=== PATIENT | female | born 1975 | race Caucasian/White ===

== ENCOUNTER 2023-04-26 17:25 | Emergency (ER) | payer BC, SELFPAY ==
[2023-04-26 17:31] VITALS: BP 124/77; PULSE 100; RESP 16; TEMP 36.9; O2SAT 99; BMI 31.8
--- NOTE | 2023-04-26 17:56 | ED.GENADULT ---
HPI - General Adult General Time Seen by Provider: 17:56 Date Seen: 04/26/23 Chief complaint: Extremity Pain/Injury, Upper Stated complaint: right arm pain Time Seen by Provider: 04/26/23 17:53 Source: patient and RN notes reviewed Mode of arrival: ambulatory Limitations: no limitations History of Present Illness HPI narrative: This 48-year-old female is coming in with multitude of symptoms. She did have an episode of substernal chest pressure/pain with shoveling about 5-6 hours ago. The symptoms lasted for about 10-15 minutes. She was shoveling, does have underlying asthma but does not feel it was asthma. Pain is not present now. She does not have a history of cardiac disease. She has no prior diagnosis of heart issues, there is possibly family history of heart disease, certainly family history of diabetes. Patient herself is a smoker but does not have any diabetes, not aware of any prior diagnoses of hypertension or hyperlipidemia for herself. She also has been plagued with a pain in her posterior right axillary chest wall area. She states it is bothering her all the time, wakes her up. She also has had some pain in her arm, has pain when attempting to use her inhaler. She was using Aspercreme initially but states she noted a rash. She denies any numbness or tingling in her right arm, no active neck pain, no trauma. She does have a history of eczema. Related Data Home Medications Medication Instructions Recorded Confirmed albuterol sulfate 90 mcg/actuation 1 - 2 puff inhalation Q4H PRN 04/26/23 04/26/23 aerosol inhaler (Ventolin HFA) wheezing budesonide-formoterol HFA 80 2 inh inhalation DAILY 04/26/23 04/26/23 mcg-4.5 mcg/actuation aerosol inhaler (Breyna) citalopram 40 mg tablet 40 mg PO DAILY 04/26/23 04/26/23 clobetasol 0.05 % topical ointment topical BID 04/26/23 fluticasone propionate 50 spray intranasal 04/26/23 mcg/actuation nasal spray,suspension ipratropium 0.5 mg-albuterol 3 mg 3 ml inhalation Q6H PRN wheezing 04/26/23 04/26/23 (2.5 mg base)/3 mL nebulization soln Allergies Allergy/AdvReac Type Severity Reaction Status Date / Time Sulfa (Sulfonamide Allergy Mild hives Verified 04/26/23 17:36 Antibiotics) Review of Systems Status of ROS: Reports: 6 or more systems reviewed and unremarkable except as noted in History and below PFSH [facility] Social History Smoking Status: Current every day smoker How often do you have a drink containing alcohol: monthly or less AUDIT-C Alcohol total score: 1 Non-prescribed substance use: denies use Exam Const: Vital Signs, click to edit/add: Vital Signs - 24 hr 04/26/23 17:31 Temperature 98.4 F Pulse Rate [Right Pulse Oximeter] 100 Respiratory Rate 16 Blood Pressure [Ri ght Upper Arm] 124/77 Pulse Oximetry 99 Oxygen Delivery Me thod Room Air This 48-year-old female is alert, interactive, no apparent distress. She is very pleasant, speech is normal. Sclera clear, pupils equal round reactive, conjugate gaze. Symmetrical facial function. No midline tenderness of her neck, no facet compression symptoms on range of motion of her neck. No cervical adenopathy, no thyromegaly masses or nodules. Lungs are clear, good air entry, no wheezing or crackles. In a dermatomal pattern, she has erythematous scarring on her right thoracic back that leads up just to the crease of the axilla posteriorly. There are no visible vesicles, she states that this has been there for about a month, she thought she was just having and eczematous rash. This looks like it is healed shingles rash and have explained that to her. There is no axillary mass. In this dermatome, she states the skin feels funny when I touch it. She has full range of motion of her shoulder and elbow, she has pain when I palpate over the lateral epicondyle of the elbow, has increased pain when there is resisted wrist extension translating back to the elbow. There is full range of motion about her right wrist, she has normal flexion extension of the fingers in normal car ferry master strength in her right hand. Neurovascular is intact in this extremity. Documenting provider has reviewed patient's vital signs: yes Course Course ED Course: This patient does seem to be suffering from lateral epicondylitis which I did review with her. I do think she also probably had shingles about a month ago and is suffering from post herpetic neuralgia. We discussed that there is no benefit to antiviral treatment at this point. We will review possible pain management strategies such as gabapentin amitriptyline later. We do need to evaluate her episode of chest symptoms, given that this happened almost 6 hours ago, do feel that we can do a solitary troponin. Will look at basic labs, have her have an EKG. She is currently asymptomatic as far as chest symptoms at this time. Reevaluation(s) Time of Reevaluation #1: 20:03 Reevaluation #1: Reviewed with patient that the labs, chest x-ray, EKG are showing no acute pathology. We reviewed that she does need to follow-up for the episode of chest pain with her primary provider and have a stress test ordered. If further symptoms, do recommend emergent re-evaluation. Also reviewed the tennis elbow/lateral epicondylitis, we do not have the splints here. She can pick this up outpatient or get it from her primary care provider. Did discuss post herpetic neuralgia, will initiate gabapentin 100 mg p.o. nightly, can be titrated up through her primary care provider. Vital Signs Vital signs: Initial Vital Signs Temperature 98.4 F 04/26/23 17:31 Temperature Source Temporal Artery Scan 04/26/23 17:31 Pulse Rate 100 04/26/23 17:31 Respiratory Rate 16 04/26/23 17:31 Blood Pressure 124/77 04/26/23 17:31 Blood Pressure Mean 92 04/26/23 17:31 Blood Pressure Position Sitting 04/26/23 17:31 Pulse Oximetry 99 04/26/23 17:31 Oxygen Delivery Method Room Air 04/26/23 17:31 Vital Signs Temperature 98.4 F 04/26/23 17:31 Pulse Rate 100 04/26/23 17:31 Respiratory Rate 16 04/26/23 17:31 Blood Pressure 124/77 04/26/23 17:31 Pulse Oximetry 99 04/26/23 17:31 Oxygen Delivery Method Room Air 04/26/23 17:31 Temperature 98.4 F 04/26/23 17:31 Pulse Rate 100 04/26/23 17:31 Respiratory Rate 16 04/26/23 17:31 Blood Pressure 124/77 04/26/23 17:31 Pulse Oximetry 99 04/26/23 17:31 Oxygen Delivery Method Room Air 04/26/23 17:31 Medical Decision Making Lab Data Lab results reviewed: Yes I reviewed the patient's lab results Labs: Lab Results 04/26/23 04/26/23 Range/Units 18:17 18:17 WBC 8.04 (4.50-11.00) K/uL RBC 4.37 (4.00-5.20) m/uL Hgb 12.6 (12.0-16.0) gm/dL Hct 38.7 (33.0-51.0) % MCV 89 (80-100) fL MCH 29 (26-34) pg MCHC 33 (32-36) gm/dL RDW Coeff of Emily 12.5 (11.5-15.5) % Plt Count 273 (140-440) K/uL Neut % (Auto) 67.4 (42.0-72.0) % Lymph % (Auto) 22.5 (20-44) % Worth % (Auto) 7.1 (0.0-11.0) % Eos % (Auto) 2.5 (0.0-7.0) % Baso % (Auto) 0.4 (0.0-3.0) % Neut # (Auto) 5.42 (1.7-7.0) K/uL Lymph # (Auto) 1.81 (0.90-2.90) K/uL Worth # (Auto) 0.60 (0.00-0.90) K/UL Eos # (Auto) 0.20 (0.00-0.50) K/uL Baso # (Auto) 0.03 (0.00-0.30) K/uL Abs Immat Gran (auto) 0.01 (0.00-0.30) K/uL Imm/Tot Granulo (auto) 0.1 % Sodium 137 (135-149) mmol/L Potassium 3.9 (3.6-5.1) mmol/L Chloride 102 (96-114) mmol/L Carbon Dioxide 28 (20-32) mmol/L Anion Gap 7 (7-15) mEq/L BUN 15 (5-24) mg/dL Creatinine 0.7 (0.5-1.5) mg/dL Estimated Creat Clear 86.72 Estimated GFR 108 ml/min Glucose 107 (60-115) mg/dL Calcium 8.7 (8.4-10.6) mg/dL Total Bilirubin < 0.1 L (0.1-1.5) mg/dL AST 21 (12-35) U/L ALT 17 (4-35) U/L Alkaline Phosphatase 63 (40-150) U/L Troponin I < 0.01 L Cancelled (0.01-0.04) ng/mL NT-Pro-B Natriuret Pep 36 pg/mL Total Protein 7.0 (6.0-8.3) g/dL Albumin 4.0 (3.3-5.0) g/dL Imaging Data Chest x-ray: Attestation: I have reviewed the pertinent imaging results. My impression: No acute pathology on my preliminary review. Radiologist's impression: Patient: DEVENDRA BARCENAS Facility:?[facility] Patient ID:?[id number] Site Patient ID:?[id number]. Site :?[id number] Study:?XRay Chest PORTABLE-04/26/2023 6:20:11 PM Ordering Physician:?Venice Lamas Final Report: INDICATION: Chest pain. TECHNIQUE: Chest radiograph, 1 view. COMPARISON: Chest radiograph 06/06/2018. FINDINGS: Lines/Tubes/Devices: None. Mediastinum: Normal cardiac silhouette. Lungs: No focal consolidation. Airways: The trachea remains midline. Pleura: No pleural effusions or pneumothorax. Bones: No acute osseous abnormalities. Upper Abdomen: Unremarkable. IMPRESSION: No acute cardiopulmonary process. Stable examination. Dictated by Abel Thomas MD @ 04/26/2023 7:41:15 PM (Electronic Signature) Discharge Plan Discharge Clinical Impression: Post herpetic neuralgia Epicondylitis, lateral Qualifiers: Laterality: right Qualified Code(s): M77.11 - Lateral epicondylitis, right elbow Chest pain Qualifiers: Chest pain type: unspecified Qualified Code(s): R07.9 - Chest pain, unspecified Patient Disposition: Home, Self-Care Instructions: Chest Pain (ED), Tennis Elbow (ED), Shingles (ED) Additional Instructions: Need to follow up in clinic with your primary care provider as soon as possible, preferably within the next few days. Do recommend having a stress test scheduled to further evaluate for any possible underlying coronary artery disease. The rash on your right back would suggest that you likely had shingles, this can leave you with a post pain syndrome. We will have you start gabapentin 100 mg at bedtime, can be titrated up if needed for pain management through your primary provider. Also consider occupational therapy and tennis elbow splint, your primary care provider can help you with these. It is possible that the tennis elbow splint may be sold at pharmacies that have durable medical goods. Activity Level: Activity as Tolerated Prescriptions: No Action citalopram 40 mg tablet 40 mg PO DAILY albuterol sulfate [Ventolin HFA] 90 mcg/actuation HFA aerosol inhaler 1 - 2 puff INHALATION Q4H PRN (Reason: wheezing) budesonide-formoterol [Breyna] 80-4.5 mcg/actuation HFA aerosol inhaler 2 inh inhalation DAILY ipratropium-albuterol 0.5 mg-3 mg(2.5 mg base)/3 mL solution for nebulization 3 ml INHALATION Q6H PRN (Reason: wheezing) clobetasol 0.05 % ointment topical BID fluticasone propionate 50 mcg/actuation spray,suspension INTRANASAL Follow Up/Referrals: Zaynab Goldstein MD [Primary Care Provider] - Stand Alone Forms: [employer] Info Instructions
--- NOTE | 2023-04-26 18:03 | CRLHL7_ITS ---
For Patients: As a result of the Century Cures Act, medical imaging exams and procedure reports are released immediately into your electronic medical record. You may view this report before your referring provider. If you have questions, please contact your health care provider. INDICATION: Chest pain. TECHNIQUE: Chest radiograph, 1 view. COMPARISON: Chest radiograph 06/06/2018. FINDINGS: Lines/Tubes/Devices: None. Mediastinum: Normal cardiac silhouette. Lungs: No focal consolidation. Airways: The trachea remains midline. Pleura: No pleural effusions or pneumothorax. Bones: No acute osseous abnormalities. Upper Abdomen: Unremarkable. IMPRESSION: No acute cardiopulmonary process. Stable examination. Dictated by Abel Thomas MD @ 04/26/2023 7:41:15 PM (Electronically Signed)
[2023-04-26 18:24] LABS: Basophils Absolute Auto 0.03 K/uL (0.00-0.30); Basophils Percent Auto 0.4 % (0.0-3.0); Eosinophils Percent Auto 2.5 % (0.0-7.0); Hematocrit 38.7 % (33.0-51.0); Hemoglobin* 12.6 gm/dL (12.0-16.0); Immature Granulocytes Abs Auto 0.01 K/uL (0.00-0.30); Immature Granulocytes Pct Auto 0.1 %; Lymphocytes Absolute Auto 1.81 K/uL (0.90-2.90); Lymphocytes Percent Auto 22.5 % (20-44); Mean Corpuscular HGB Conc 33 gm/dL (32-36); Mean Corpuscular Hemoglobin 29 pg (26-34); Mean Corpuscular Volume 89 fL (80-100); Monocytes Percent Auto 7.1 % (0.0-11.0); Neutrophils Absolute Auto 5.42 K/uL (1.7-7.0); Neutrophils Percent Auto 67.4 % (42.0-72.0); Platelet Count* 273 K/uL (140-440); RDW Coefficient of Variation % 12.5 % (11.5-15.5); Red Blood Count 4.37 m/uL (4.00-5.20); Slide Review Reflex No; White Blood Count* 8.04 K/uL (4.50-11.00)
[2023-04-26 18:39] LABS: Chloride* 102 mmol/L (96-114); Potassium* 3.9 mmol/L (3.6-5.1); Sodium* 137 mmol/L (135-149)
[2023-04-26 18:41] LABS: Anion Gap 7 mEq/L (7-15); Carbon Dioxide* 28 mmol/L (20-32); Creatinine* 0.7 mg/dL (0.5-1.5); Est. Creatinine Clearance* 86.72; Estimated Glomerular Filt Rate 108 ml/min
[2023-04-26 18:42] LABS: Alanine Aminotransferase* 17 U/L (4-35); Alkaline Phosphatase* 63 U/L (40-150); Aspartate Amino Transferase* 21 U/L (12-35); Blood Urea Nitrogen* 15 mg/dL (5-24); Calcium* 8.7 mg/dL (8.4-10.6); Glucose* 107 mg/dL (60-115)
[2023-04-26 18:50] LABS: Bilirubin Total* < 0.1 mg/dL (0.1-1.5); NT Pro B Type NatriureticPept* 36 pg/mL
[2023-04-26 19:06] LABS: Troponin I* < 0.01 ng/mL (0.01-0.04)
--- NOTE | 2023-04-26 20:09 | ED.NURSE ---
Report given to PANCHO Poole.
[2023-04-26 20:12] VITALS: BP 153/88; PULSE 92; RESP 14; O2SAT 97
[2023-04-26 20:13] VITALS: BP 153/88; PULSE 92; RESP 14; TEMP 36.9
== END 2023-04-26 20:19 | disposition home or self-care (01) ==
PROVIDERS: Emergency Provider Family Medicine; PCP Internal Medicine
DX: B02.29 Other postherpetic nervous system involvement (principal); M77.11 Lateral epicondylitis, right elbow; R07.9 Chest pain, unspecified
CPT/HCPCS: 36415; 71045; 80053; 83880; 84484; 85025; 93005; 99284; 99285

== ENCOUNTER 2023-07-27 15:45 | Outpatient (RCR) | payer BC, SELFPAY | END 2023-08-25 11:05 | disposition home or self-care (01) | PROVIDERS: PCP Internal Medicine; Visit Provider Student in an Organized Health Care Education/Training Program | DX: M77.11 Lateral epicondylitis, right elbow (principal); S46.811D Strain of other muscles, fascia and tendons at shoulder and upper arm level, right arm, subsequent encounter; Z51.89 Encounter for other specified aftercare | CPT/HCPCS: 97033; 97035; 97110; 97140; 97165; X5282 ==

== ENCOUNTER 2023-11-03 22:20 | Emergency (ER) | payer BC, SELFPAY ==
[2023-11-03 22:30] VITALS: BP 129/86; PULSE 89; RESP 16; TEMP 36.4; O2SAT 98
--- NOTE | 2023-11-03 22:49 | ED.GENADULT ---
HPI - General Adult General Chief complaint: Allergic Reaction Stated complaint: allergic reaction Time Seen by Provider: 11/03/23 22:42 History of Present Illness HPI narrative: Patient here with allergic type reaction starting 3 days ago. Puffy eyes, itchy skin. Only new exposure is started keflex 48-year-old woman presenting to the emergency department with concern of an allergic reaction. Was initiated on Keflex following a visit 5 days ago in Urgent Care. Diagnosed with a ?skin infection?. Specifically this was behind her ears. Has been experiencing puffy eyes in generally itchy skin beginning about 3 days ago. No fever. No sore throat. Does have a history of eczema and reactive airway/asthma. Has noticed a little wheeze/cough. Related Data Home Medications ?Medication ?Instructions ?Recorded ?Confirmed albuterol sulfate 90 mcg/actuation 1 - 2 puff inhalation Q4H PRN 04/26/23 10/29/23 aerosol inhaler (Ventolin HFA) wheezing budesonide-formoterol HFA 80 2 inh inhalation DAILY 04/26/23 10/29/23 mcg-4.5 mcg/actuation aerosol inhaler (Breyna) citalopram 40 mg tablet 40 mg PO DAILY 04/26/23 10/29/23 clobetasol 0.05 % topical ointment topical BID 04/26/23 10/29/23 fluticasone propionate 50 spray intranasal 04/26/23 10/29/23 mcg/actuation nasal spray,suspension ipratropium 0.5 mg-albuterol 3 mg 3 ml inhalation Q6H PRN wheezing 04/26/23 10/29/23 (2.5 mg base)/3 mL nebulization soln Previous Rx's ?Medication ?Instructions ?Recorded hydrocortisone 2.5 % topical cream 1 applic topical BID PRN #20 grams 11/03/23 Allergies Allergy/AdvReac Type Severity Reaction Status Date / Time Sulfa (Sulfonamide Allergy Mild hives Verified 10/29/23 17:36 Antibiotics) PFSH PFS Social History Smoking Status: Current every day smoker How often do you have a drink containing alcohol: monthly or less AUDIT-C Alcohol total score: 1 Non-prescribed substance use: denies use Exam Narrative: Exam Narrative: Very pleasant. NAD. Does have generally puffy periorbital skin/upper eyelids in particular. No significant calor or induration. Faint erythema. Eyes with mild injection of the sclera. There is eczematous change in erythema about the ears. I do not see significant drainage. I do not see a marked erythema or induration of the skin to suggest a cellulitis. Is breathing easily. Const: Vital Signs, click to edit/add: Vital Signs - 24 hr 11/03/23 22:30 Temperature 97.5 F L Pulse Rate [Pulse Oximeter] 89 Respiratory Rate 16 Blood Pressure [Ri ght Upper Arm] 129/86 Pulse Oximetry 98 Oxygen Delivery Me thod Room Air Documenting provider has reviewed patient's vital signs: yes Course Vital Signs Vital signs: Initial Vital Signs Temperature 97.5 F L 11/03/23 22:30 Temperature Source Temporal Artery Scan 11/03/23 22:30 Pulse Rate 89 11/03/23 22:30 Respiratory Rate 16 11/03/23 22:30 Blood Pressure 129/86 11/03/23 22:30 Blood Pressure Mean 100 11/03/23 22:30 Blood Pressure Position Sitting 11/03/23 22:30 Pulse Oximetry 98 11/03/23 22:30 Oxygen Delivery Method Room Air 11/03/23 22:30 Vital Signs Temperature 97.5 F L 11/03/23 22:30 Pulse Rate 89 11/03/23 22:30 Respiratory Rate 16 11/03/23 22:30 Blood Pressure 129/86 11/03/23 22:30 Pulse Oximetry 98 11/03/23 22:30 Oxygen Delivery Method Room Air 11/03/23 22:30 Temperature 97.5 F L 11/03/23 22:30 Pulse Rate 89 11/03/23 22:30 Respiratory Rate 16 11/03/23 22:30 Blood Pressure 129/86 11/03/23 22:30 Pulse Oximetry 98 11/03/23 22:30 Oxygen Delivery Method Room Air 11/03/23 22:30 Medications Administered Medications: Discontinued Medications Generic Name Dose Route Start Last Admin Trade Name Freq PRN Reason Stop Dose Admin Diphenhydramine HCl 25 mg 11/03/23 23:01 11/03/23 23:11 Diphenhydramine 25 Mg Capsule PO 11/03/23 23:02 Not Given ONCE ONE Diphenhydramine HCl 25 mg 11/03/23 23:02 11/03/23 23:11 Diphenhydramine 25 Mg Capsule PO 11/03/23 23:03 Not Given ONCE ONE Medical Decision Making MDM Narrative Medical decision making narrative: Appears to be describing mild exacerbation of underlying asthma in the setting of eczema as well. I think inflammation of eczema is the primary underlying issue. It would appear that she is most likely having a reaction to cephalexin as well at this point. I think most benefit at this time would be a topical steroid. Does have a good deal of itch and would be helped by diphenhydramine. She does not have any ready available and I would dispense a couple of tablets here today. Does not appear to need intervention for her lungs at this time in the emergency department. Would benefit from a few days of prednisone which I think would benefit broadly itch, lungs and any med reaction it may have occurred. See patient discharge plan for further discussion Medical Records Medical records reviewed: Yes I reviewed the patient's medical records Discharge Plan Discharge Clinical Impression: Eczema, Allergic reaction, Asthma exacerbation Patient Disposition: Home, Self-Care Condition: Stable Additional Instructions: Can take these 2 tabs of diphenhydramine when you get home. Prednisone from [facility]. Can take diphenhydramine for breakthrough itch I think I would stop the cephalexin at this point. Sending in hydrocortisone cream that you can use around your face and your ears in the short-term. Prescriptions: New hydrocortisone 2.5 % cream 1 applic topical BID PRNQty: 20 0RF No Action citalopram 40 mg tablet 40 mg PO DAILY albuterol sulfate [Ventolin HFA] 90 mcg/actuation HFA aerosol inhaler 1 - 2 puff INHALATION Q4H PRN (Reason: wheezing) budesonide-formoterol [Breyna] 80-4.5 mcg/actuation HFA aerosol inhaler 2 inh inhalation DAILY ipratropium-albuterol 0.5 mg-3 mg(2.5 mg base)/3 mL solution for nebulization 3 ml INHALATION Q6H PRN (Reason: wheezing) clobetasol 0.05 % ointment topical BID fluticasone propionate 50 mcg/actuation spray,suspension INTRANASAL Follow Up/Referrals: Zaynab Goldstein MD [Primary Care Provider] - Stand Alone Forms: [email or web address] Info Instructions
== END 2023-11-03 23:13 | disposition home or self-care (01) ==
LOC: ED 23:08
PROVIDERS: Emergency Provider Family Medicine; PCP Internal Medicine
DX: L30.9 Dermatitis, unspecified (principal); T78.40XA Allergy, unspecified, initial encounter; J45.901 Unspecified asthma with (acute) exacerbation
CPT/HCPCS: 99283; 99284